=== PATIENT | female | born 1990 | race Caucasian/White ===

== ENCOUNTER → 2016-11-06 | Outpatient (CLI) | payer OTHER, BC ==
[~2016-11-06] MED LIST: LEVE250 PO; OXYC1TAB63 PO; TRIL600T
== END ==
LOC: HPND 09:14
PROVIDERS: ATTEND Obstetrics & Gynecology
DX: O99.352 Diseases of the nervous system complicating pregnancy, second trimester (principal)
CPT/HCPCS: 76811; 76825; 76827; 93325

== ENCOUNTER → 2016-12-07 | Outpatient (CLI) | payer OTHER, BC | LOC: HPND 07:59 | PROVIDERS: ATTEND Obstetrics & Gynecology | DX: O99.352 Diseases of the nervous system complicating pregnancy, second trimester (principal) | CPT/HCPCS: 76816 ==

== ENCOUNTER → 2017-01-07 | Outpatient (CLI) | payer OTHER, BC | LOC: HPND 14:52 | PROVIDERS: ATTEND Obstetrics & Gynecology | DX: O99.353 Diseases of the nervous system complicating pregnancy, third trimester (principal); G40.509 Epileptic seizures related to external causes, not intractable, without status epilepticus; Z3A.33 33 weeks gestation of pregnancy | CPT/HCPCS: 76816 ==

== ENCOUNTER 2017-02-22 07:55 | Inpatient (IN) | payer OTHER, BC ==
[~2017-02-22] VITALS: Ht 170.2 cm; Wt 97.1 kg
[2017-02-22] VITALS (74 sets, daily range): BP systolic 100–141; BP diastolic 31–101; PULSE 73–113; RESP 0–20; TEMP 97.9–98.5
[~2017-02-22 07:55] MED LIST changes: -LEVE250 PO; -OXYC1TAB63 PO
[2017-02-22] MEDS ORDERED: LEVE250 PO (08:30)
--- NOTE | 2017-02-22 08:34 | HHI.HP ---
HPI Chief Complaint Induction at 40 weeks Date Seen: February 22, 2017 Time Seen: 08:20 Travel History International Travel<30 Days: No Contact w/Intl Traveler<30Days: No Known Affected Area: No History of Present Illness HPI good care for induction Para: 0 : 1 History Past Medical History Narrative Medical seizure disorder on 2 meds well controlled Past Surgical History Surgical History: No Previous Surgery Family History Family History: Negative Social History Alcohol Use: No Tobacco Use: No Substance Abuse: No Allergies-Medications (Allergen,Severity, Reaction): Coded Allergies: No Known Allergies (Verified Allergy, Mild, 06/29/06) Home Meds Active Scripts Levetiracetam (Keppra)250 Mg [id number] Mg PO BID #60 TAB Ref 0 Prov:Brandon Wong MD 02/22/17 Reported Medications Oxcarbazepine (Trileptal)600 Mg Tab 06/29/06 Review of Systems Except as stated in HPI: all other systems reviewed are Neg Physical Exam Narrative GENERAL: Well-nourished, well-developed patient. SKIN: Warm and dry. HEAD: Normocephalic and atraumatic. EYES: No scleral icterus. No injection or drainage. ENT: No nasal drainage noted. Mucous membranes pink. Airway patent. NECK: Supple, trachea midline. No JVD. CARDIOVASCULAR: Regular rate and rhythm without murmurs, gallops, or rubs. RESPIRATORY: Breath sounds equal bilaterally. No accessory muscle use. BREASTS: Bilateral exam showed no masses , no retractions, no nipple discharge. ABDOMEN/GI: Abdomen soft, non-tender, bowel sounds present, no rebound, no guarding Gravid to 40 weeks size Fundal Height: [-] GENITOURINARY: External Genitalia: intact and normal in appearance BUS glands: [-] Cervix: [-] Dilatation: 2-3 Effacement: 70 Station: -2 Presentation: [-] Membranes: [intact Uterine Contractions: [-] FHT's: Category: 1 Baseline: [-] Reactive: [-] Variability: [-] Decels: [-] EXTREMITIES: No cyanosis or edema. BACK: Nontender without obvious deformity. No CVA tenderness. NEUROLOGICAL: Awake and alert. Motor and sensory grossly within normal limits. Five out of 5 muscle strength in all muscle groups. Normal speech. Data Data Vital Signs Reviewed: Yes Assessment/Plan Problem List: (1) 40 weeks gestation of Discharge Planning AROM pitocin induction Brandon Wong MD February 22, 2017 08:34
[2017-02-22] MEDS ORDERED: LACTATED RINGER'S 1000 ML INJ 1,000 ML IV SCH (08:46)
[2017-02-22] MEDS ORDERED: LACTATED RINGER'S 1000 ML INJ 1,000 ML IV PRN (08:46)
[2017-02-22] MEDS ORDERED: LIDOCAINE HCL 1% 50 ML VIAL I-DERMAL PRN (09:00)
[2017-02-22] MEDS ORDERED: PENICILLIN G POTASSIUM INJ 5,000,000 UNITS in SODIUM CHLORIDE 0.9% INJ 100 ML IV ONE (09:00)
[2017-02-22] MEDS ORDERED: SODIUM CHLORID 0.9% 500 ML INJ 500 ML IV PRN (09:00)
[2017-02-22] MEDS ORDERED: LIDOCAINE HCL 1% 50 ML VIAL INFIL PRN (09:00)
[2017-02-22] MEDS ORDERED: CITRIC ACID-SODIUM CITRATE LIQ 30 ML UDC PO SCH (09:00)
[2017-02-22] MEDS ORDERED: OXYTOCIN 30 UNITS-500ML PREMIX 500 ML IV SCH (09:00)
[2017-02-22] MEDS ORDERED: MINERAL OIL 10 ML VIAL TOPICAL PRN (09:00)
[2017-02-22] MEDS ORDERED: OXYTOCIN 30 UNITS-500ML PREMIX 500 ML IV ONE (09:00)
[2017-02-22] MEDS ORDERED: SODIUM CHLOR 0.9% 1000 ML INJ 1,000 ML IV PRN (09:06)
[2017-02-22 09:16] LABS: AUTOMATED NEUTROPHIL # 6.4 TH/MM3 (1.8-7.7); BASOPHIL % 0.1 % (0.0-2.0); EOSINOPHIL % 0.2 % (0.0-4.0); HEMATOCRIT 37.3 % (35.0-46.0); HEMO FLAGS DIFF FINAL; LYMPH % 20.1 % (9.0-44.0); LYMPHOCYTE # 1.8 TH/MM3 (1.0-4.8); MEAN CELL VOLUME 84.8 FL (80.0-100.0); MEAN CORPUSCULAR HEMOGLOBIN 28.5 PG (27.0-34.0); MEAN CORPUSCULAR HGB CONC 33.6 % (32.0-36.0); MONO % 6.9 % (0.0-8.0); NEUT % 72.7 % (16.0-70.0); PLATELET COUNT 133 TH/MM3 (150-450); RED BLOOD COUNT 4.39 MIL/MM3 (4.00-5.30); RED CELL DISTRIBUTION WIDTH 14.2 % (11.6-17.2); WHITE BLOOD COUNT 8.8 TH/MM3 (4.0-11.0)
[2017-02-22 09:18] LABS: BACTERIA, URINE OCC /hpf; BLOOD, URINE NEG (NEG); COMMENT (UR) CULT NOT INDICATED; CULTURE IF INDICATED CULT NOT INDICATED; GLUCOSE,URINE NEG (NEG); KETONE, URINE NEG (NEG); NITRITE,URINE NEG (NEG); PH, URINE 6.5 (5.0-8.5); SQUAMOUS EPITHELIAL CELL URINE <1 /hpf (0-5); URINE COLOR LIGHT-YELLOW (YELLW/STRAW)
[2017-02-22] MEDS: PENICILLIN G POTASSIUM INJ 2,500,000 UNITS in SODIUM CHLORIDE 0.9% INJ 100 ML IV SCH ×2 (13:00→14:44)
--- NOTE | 2017-02-22 15:59 | PD.LABORPN ---
Subjective Subjective doing well comfortable on 10 mu pit Objective Vital Signs Vital Signs Date Time Temp Pulse Resp B/P Pulse Ox O2 Delivery O2 Flow Rate FiO2 02/22/17 15:45 17 02/22/17 15:36 87 128/75 02/22/17 14:19 98.0 16 02/22/17 14:18 80 134/78 02/22/17 12:23 16 02/22/17 11:50 16 02/22/17 11:48 86 119/68 02/22/17 11:15 16 02/22/17 10:30 16 02/22/17 09:45 98.4 16 02/22/17 09:39 91 112/70 Objective Pelvic Exam: Cervix: [-] Dilatation: 2-3 Effacement: 70 Station: [-] Presentation: vtx Membranes: ruptured Uterine Contractions: [-] FHT's: Category: 1 Baseline: [-] Reactive: [-] Variability: [-] Decels: [-] Assessment/Plan Problem List: (1) 40 weeks gestation of Plan: AROM clear at 15:55 Brandon Wong MD February 22, 2017 15:59
[2017-02-22] MEDS ORDERED: DIPHTH/TETANUS/ACEL PERTUSSIS (BOOSTER) 0.5 ML VIAL/PFS IM ONE (16:00)
[2017-02-22] MEDS ORDERED: MEASLES, MUMPS, RUBELLA VACCINE 0.5 ML VIAL SQ ONE (16:00)
[2017-02-22] MEDS ORDERED: fentaNYL 2MCG-BUPIV 0.125% INJ 100 ML ONE (19:15)
[2017-02-22] MEDS ORDERED: BUPIVACAINE HCL PF 0.25% 10 ML VIAL ONE (20:50)
[2017-02-22] MEDS ORDERED: ACETAMINOPHEN 325 MG TAB PO PRN (23:15)
[2017-02-22] MEDS ORDERED: WITCH HAZEL 50%/GLYCERIN 12.5% 40 PAD JAR TOPICAL PRN (23:15)
[2017-02-22] MEDS ORDERED: DOCUSATE SODIUM 50 MG/SENNA 8.6 MG TAB PO PRN (23:15)
[2017-02-22] MEDS ORDERED: SODIUM CHLORIDE 0.9% FLUSH 10 ML FLUSH IV FLUSH PRN (23:15)
[2017-02-22] MEDS ORDERED: ONDANSETRON ODT 4 MG TAB PO PRN (23:15)
[2017-02-22] MEDS ORDERED: oxyCODONE/ACETAMINOPHEN 5 MG/325 MG TAB PO PRN ×2 (23:15)
[2017-02-22] MEDS ORDERED: BENZOCAINE 20% TOPICAL SPRAY 60 ML CAN TOPICAL PRN (23:15)
[2017-02-22] MEDS ORDERED: IBUPROFEN 600 MG TAB PO PRN (23:15)
[2017-02-22] MEDS ORDERED: ALUMINUM/MAGNESIUM/SIMETH 30 ML CUP PO PRN (23:15)
[2017-02-22] MEDS ORDERED: ZOLPIDEM TARTRATE 5 MG TAB PO PRN (23:15)
--- NOTE | 2017-02-22 23:18 | PD.OB.DELI ---
Delivery Date: February 22, 2017 Anesthesia: Epidural Episiotomy: Right mediolateral Vaginal Delivery: Normal Presentation: Occiput anterior Nuchal Cord: x1 Delayed cord clamping (45 sec): Yes : Female, Single One Minute : 9 Five Minute : 9 Weight: 7# 1 oz Placenta: Spontaneous delivery, Intact, 3 vessel cord Laceration: Episiotomy, 2 deg (extension) Repair: Chromic running Brandon Wong MD February 22, 2017 23:18
[2017-02-23] VITALS (8 sets, daily range): BP systolic 116–133; BP diastolic 62–73; PULSE 90–108; RESP 17–18; TEMP 97.9–98.3
--- NOTE | 2017-02-23 08:09 | HHI.OB ---
Subjective Post Day: 1 Remarks doing well pp Objective Vitals/I&O Vital Signs Date Time Temp Pulse Resp B/P Pulse Ox O2 Delivery O2 Flow Rate FiO2 02/23/17 02:00 108 119/70 02/23/17 02:00 98.3 18 02/23/17 00:49 18 02/23/17 00:45 94 18 133/73 02/23/17 00:30 99 117/65 02/23/17 00:30 18 02/23/17 00:29 95 121/62 02/22/17 23:45 18 02/22/17 23:30 110 131/68 02/22/17 23:30 18 02/22/17 23:26 103 118/72 02/22/17 23:16 103 106/93 02/22/17 23:15 18 02/22/17 23:00 96 127/79 02/22/17 23:00 96 127/79 02/22/17 22:31 101 119/88 02/22/17 22:31 101 119/88 02/22/17 22:25 97 02/22/17 22:25 97 02/22/17 22:20 99 02/22/17 22:20 99 02/22/17 22:16 94 123/88 02/22/17 22:16 94 123/88 02/22/17 22:15 97 19 02/22/17 22:15 97 19 02/22/17 22:15 98.5 02/22/17 22:10 91 02/22/17 22:05 101 02/22/17 22:00 93 131/62 02/22/17 22:00 95 02/22/17 21:55 81 02/22/17 21:50 86 02/22/17 21:45 107 127/80 02/22/17 21:45 101 02/22/17 21:35 85 02/22/17 21:30 78 02/22/17 21:30 81 118/63 02/22/17 21:15 75 120/60 02/22/17 21:15 0 02/22/17 21:15 74 02/22/17 21:10 74 118/63 02/22/17 21:10 86 02/22/17 21:05 74 02/22/17 21:05 88 115/61 02/22/17 21:00 79 02/22/17 21:00 87 114/71 02/22/17 20:55 87 126/76 02/22/17 20:55 83 02/22/17 20:50 90 02/22/17 20:50 118/60 02/22/17 20:50 73 02/22/17 20:45 90 02/22/17 20:45 79 02/22/17 20:45 118/79 02/22/17 20:40 102 117/76 02/22/17 20:40 101 02/22/17 20:35 96 123/80 02/22/17 20:35 113 02/22/17 20:30 101 140/79 02/22/17 20:30 108 02/22/17 20:25 91 121/75 02/22/17 20:25 89 02/22/17 20:20 106 02/22/17 20:20 95 121/76 02/22/17 20:15 99 118/75 02/22/17 20:15 99 02/22/17 20:10 96 02/22/17 20:10 97 131/84 02/22/17 20:05 101 02/22/17 20:05 105 135/101 02/22/17 20:00 95 127/81 02/22/17 20:00 94 02/22/17 19:55 78 02/22/17 19:55 101 120/75 02/22/17 19:50 90 02/22/17 19:50 85 124/66 02/22/17 19:45 80 02/22/17 19:45 90 126/55 02/22/17 19:41 81 123/64 02/22/17 19:40 96 02/22/17 19:37 108 110/74 02/22/17 19:36 94 100/31 02/22/17 19:35 81 02/22/17 19:31 89 109/82 02/22/17 19:30 93 02/22/17 19:26 95 123/76 02/22/17 19:25 93 02/22/17 19:20 83 118/59 02/22/17 19:15 18 02/22/17 19:01 82 141/85 02/22/17 18:42 97.9 02/22/17 18:41 19 02/22/17 18:30 103 120/80 02/22/17 18:15 20 02/22/17 18:15 18 02/22/17 18:00 94 115/67 02/22/17 17:45 18 02/22/17 17:30 89 119/63 02/22/17 17:15 17 02/22/17 17:14 88 118/67 02/22/17 16:45 18 02/22/17 16:45 98.2 02/22/17 16:33 87 118/69 02/22/17 16:31 87 123/41 02/22/17 16:01 85 122/75 02/22/17 15:45 17 02/22/17 15:36 87 128/75 02/22/17 14:19 98.0 16 02/22/17 14:18 80 134/78 02/22/17 12:23 16 02/22/17 11:50 16 02/22/17 11:48 86 119/68 02/22/17 11:15 16 02/22/17 10:30 16 02/22/17 09:45 98.4 16 02/22/17 09:39 91 112/70 Objective Remarks GENERAL: Well-nourished, well-developed patient. ABDOMEN/GI: Abdomen soft, non-tender. Fundus: Firm, non-tender at umbilicus. GENITOURINARY: Light to moderate bleeding. EXTREMITIES: No cyanosis or edema, non-tender, without signs of DVT. Medications and IVs Current Medications Medications (Trade) Dose Ordered Sig/Deina Route Start Time Stop Time Status Last Admin (NS Flush) 2 ml BID IV FLUSH 02/23/17 09:00 (NS Flush) 2 ml UNSCH PRN IV FLUSH 02/22/17 23:15 (Tylenol) 650 mg Q4H PRN PO 02/22/17 23:15 (Motrin) 600 mg Q6H PRN PO 02/22/17 23:15 (Percocet 5-325 Mg) 1 tab Q4H PRN PO 02/22/17 23:15 (Percocet 5-325 Mg) 2 tab Q4H PRN PO 02/22/17 23:15 (Americaine 20% Top Spr) 1 spray Q4H PRN TOPICAL 02/22/17 23:15 02/23/17 06:36 (Tucks Pads) 1 applic QID PRN TOPICAL 02/22/17 23:15 02/23/17 06:36 (Diane-Colace) 2 tab Q12H PRN PO 02/22/17 23:15 (Ambien) 5 mg HS PRN PO 02/22/17 23:15 (Mag-Al Plus Susp Liq) 15 ml Q8H PRN PO 02/22/17 23:15 (Zofran Odt) 4 mg Q6H PRN PO 02/22/17 23:15 Assessment/Plan Problem List: (1) 40 weeks gestation of Plan: Discharge Planning DC 02/24 Brandon Wong MD February 23, 2017 08:08
--- NOTE | 2017-02-23 08:10 | HHI.DCPOC ---
Discharge Care Plan Diagnosis: (1) 40 weeks gestation of (2) Spontaneous vaginal delivery Report Symptoms to Your Doctor -Temperate above 100.5 degrees -Redness, of incision or excessive or foul smelling drainage -Unusual pain or calf pain -Increased vaginal bleeding -Painful or difficulty urinating -Feelings of extreme sadness or anxiety after 2 weeks Goals to Promote Your Health * To prevent worsening of your condition and complications * To maintain your health at the optimal level Directions to Meet Your Goals Take your medications as prescribed Follow your dietary instruction Follow activity as directed Ensure plenty of rest for recovery Drink fluids for hydration Keep your appointments as scheduled Take your immunizations and boosters as scheduled If your symptoms worsen call your PCP, if no PCP go to Urgent Care Center or Emergency Room Smoking is Dangerous to Your Health. Avoid second hand smoke Call the 24-hour crisis hotline for domestic abuse at Brandon Wong MD February 23, 2017 08:10
[2017-02-23] MEDS ORDERED: OXYC1TAB63 PO (08:11)
[2017-02-23] MEDS ORDERED: SODIUM CHLORIDE 0.9% FLUSH 10 ML FLUSH IV FLUSH SCH (09:00)
--- NOTE | 2017-02-24 07:55 | HHI.OB ---
Subjective Post Day: 2 Remarks doing well after Objective Vitals/I&O Vital Signs Date Time Temp Pulse Resp B/P Pulse Ox O2 Delivery O2 Flow Rate FiO2 02/23/17 22:00 97 116/73 02/23/17 22:00 98.1 17 02/23/17 15:50 18 02/23/17 08:00 97.9 90 18 117/62 Objective Remarks GENERAL: Well-nourished, well-developed patient. ABDOMEN/GI: Abdomen soft, non-tender. Fundus: Firm, non-tender at umbilicus. GENITOURINARY: Light to moderate bleeding. EXTREMITIES: No cyanosis or edema, non-tender, without signs of DVT. Medications and IVs Current Medications Medications (Trade) Dose Ordered Sig/Denia Route Start Time Stop Time Status Last Admin (NS Flush) 2 ml BID IV FLUSH 02/23/17 09:00 (NS Flush) 2 ml UNSCH PRN IV FLUSH 02/22/17 23:15 (Tylenol) 650 mg Q4H PRN PO 02/22/17 23:15 (Motrin) 600 mg Q6H PRN PO 02/22/17 23:15 (Percocet 5-325 Mg) 1 tab Q4H PRN PO 02/22/17 23:15 (Percocet 5-325 Mg) 2 tab Q4H PRN PO 02/22/17 23:15 (Americaine 20% Top Spr) 1 spray Q4H PRN TOPICAL 02/22/17 23:15 02/23/17 06:36 (Tucks Pads) 1 applic QID PRN TOPICAL 02/22/17 23:15 02/23/17 06:36 (Diane-Colace) 2 tab Q12H PRN PO 02/22/17 23:15 (Ambien) 5 mg HS PRN PO 02/22/17 23:15 (Mag-Al Plus Susp Liq) 15 ml Q8H PRN PO 02/22/17 23:15 (Zofran Odt) 4 mg Q6H PRN PO 02/22/17 23:15 Assessment/Plan Problem List: (1) 40 weeks gestation of Plan: Discharge Planning DC 02/24 Brandon Wong MD February 24, 2017 07:55
--- NOTE | 2017-02-24 07:57 | HHI.DS ---
Admission Date February 22, 2017 at 07:55 Discharge Date: February 24, 2017 Admitting Diagnosis Diagnosis: (1) 40 weeks gestation of Diagnosis: Principal (2) Spontaneous vaginal delivery Diagnosis: Principal Delivery Date: February 22, 2017 Vaginal Delivery: Normal Infant: Female, Single Brief History good care for induction Hospital Course doing well post Pt Condition on Discharge: Good Discharge Disposition: Discharge Home Discharge Instructions Diet Instructions: As Tolerated, No Restrictions Activities You Can Perform: Pelvic Rest Activities to Avoid: Driving for 24 hrs Follow up Referrals: [facility]ICU RN - 2 Weeks @ [facility] with Brandon Wong MD New Medications: Oxycodone-Acetaminophen (Oxycodone-Acetaminophen) 5-325 mg Tab 1 TAB PO Q4H PRN PAIN SCALE 3 TO 5 #20 TAB Continued Medications: Levetiracetam (Keppra) 250 Mg Tab 250 MG PO BID Control Seizures #60 Ref 0 TAB Oxcarbazepine (Trileptal) 600 Mg Tab Brandon Wong MD February 24, 2017 07:57
[2017-02-24 08:05] VITALS: BP 122/72; PULSE 93; RESP 18; TEMP 98
== END 2017-02-24 12:37 | disposition home or self-care (01) | DRG 775 ==
LOC: H2EB 07:55 → H1EA 02-23 01:14
PROVIDERS: ADMIT Obstetrics & Gynecology; ATTEND Obstetrics & Gynecology
PROC: 10E0XZZ Delivery of Products of Conception, External Approach (ICD-10-PCS; principal; 2017-02-22)
PROC: 0KQM0ZZ Repair Perineum Muscle, Open Approach (ICD-10-PCS; 2017-02-22)
PROC: 0W8NXZZ Division of Female Perineum, External Approach (ICD-10-PCS; 2017-02-22)
PROC: 3E033VJ Introduction of Other Hormone into Peripheral Vein, Percutaneous Approach (ICD-10-PCS; 2017-02-22)
DX: O70.1 Second degree perineal laceration during delivery (principal); Z37.0 Single live birth; O99.354 Diseases of the nervous system complicating childbirth; Z3A.40 40 weeks gestation of pregnancy; G40.909 Epilepsy, unspecified, not intractable, without status epilepticus; O69.81X0 Labor and delivery complicated by cord around neck, without compression, not applicable or unspecified
CPT/HCPCS: 59025; 81001; 85025; 86900; 86901; 90715; J2540; J2590; J3010; J7120